=== PATIENT | male | born 1970 | race Caucasian/White ===

== ENCOUNTER → 2017-05-15 | Outpatient (CLI) | payer BC ==
[~2017-05-15] VITALS: Ht 210.8 cm; Wt 100.2 kg
[~2017-05-15] MED LIST: DIOVAN 80 MG TA80 M1 PO; LANTUS SOL100 UNIT/1 SUBQ; LIPITOR 20 MG T20 M1 PO; NOVOLOG FL100 UNIT/M SUBQ; VALACYCLOVIR500 MG PO; XANAX 0.25 MG0.25 MG PO
--- NOTE | ~2017-05-15 | HPC ---
[facility] [address] [place] [address] PAIN MANAGEMENT CONSULTATION Name: JARED CARBAJAL Room #: REG CLSharp Mesa VistaChucky.#: [id number] Admission: 05/15/17 Attend Phys: Og Woo DO Discharge: Date of : 66 Report #: [id number] THIS REPORT FOR: //name// CC: Scotty Torres MD DATE OF SERVICE: 05/15/2017 DATE OF SERVICE: 05/15/2017 CHIEF COMPLAINT: Neck pain, left upper extremity pain with paresthesias. HISTORY OF PRESENT ILLNESS: As you know, the patient is a very pleasant 46-year-old male, who began experiencing left neck pain, left upper extremity pain with paresthesias presented 02/01/2017. He states that his neck pain and left upper extremity pain was preceded by some chronic shoulder pain on that left side that had been present since November or December. The patient indicates his pain is intermittent, describes the pain as aching, sharp, stabbing, numbness and tingling. Places current pain score 5/10, daily average at 5/10, worst the pain has been is 7/10. The patient states sleeping on his left shoulder and using his left arm exacerbates symptoms. Stretching appears to improve pain. He denies injury or trauma to his neck or left upper extremity that may have led to symptom development. He has been referred to our service for evaluation for suspected cervical radiculopathy. PAST MEDICAL HISTORY: 1. Diabetes mellitus type 2. 2. Hypertension. 3. Lymphoma. 4. Dyslipidemia. 5. Anxiety disorder. PAST SURGICAL HISTORY: Bone marrow transplantation 1995, tonsillectomy in 1992, surgery for deviated septum in 1988, toe surgery in 2009. SOCIAL HISTORY: The patient denies tobacco, IV or illicit drug use. Admits to approximately 10 alcohol beverages per week. 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 He is working, not receiving workmen's compensation nor is he trying to obtain disability benefits. He is not in litigation in regards to pain. He is unaccompanied today. REVIEW OF SYSTEMS: Positive for wearing corrective eyewear, constipation, diabetes mellitus type 2, dyslipidemia, neck pain, left upper extremity pain and paresthesias. All other review of systems negative per 12-point review of systems other than those listed in history of present illness. [address] [address] PAIN MANAGEMENT CONSULTATION Name: JARED CARBAJAL CARMEN Room #: REG CLBela Lopez.#: [id number] Admission: 05/15/17 Attend Phys: Og Woo DO Discharge: Date of : 66 Report #: [id number] Pain impact score 2370 indicating mild to moderate interference of daily activities secondary to pain. ALLERGIES: MORPHINE. CURRENT MEDICATIONS: Alprazolam 0.25 mg p.r.n., Lantus 32 units before bedtime, valacyclovir 500 mg once a day, valsartan 800 mg per day, atorvastatin 20 mg per day, NovoLog FlexPen 16 units before meals. IMAGING DATA: No imaging available. PHYSICAL EXAMINATION: VITAL SIGNS: Blood pressure 129/91, pulse 79, respiratory rate 14, unlabored. The patient is 96% on room air, height 6 feet 1 inch tall, weight 221 pounds, BMI calculated 29.2. GENERAL: Well-developed, well-nourished, well-hydrated, 46-year-old male. He appears his stated age. He is placing current pain score approximately 5/10. HEENT: Normocephalic, atraumatic. Pupils equal, round, reactive to light. Extraocular muscles are intact. Sclerae nonicteric without injection. NEUROLOGIC: Cranial nerves 2-12 grossly intact. Speech is fluent. The patient deemed an excellent historian. LUNGS: Clear, no wheeze, rhonchi or rales. CARDIOVASCULAR: Regular. No appreciable gallop or rub. ABDOMEN: Soft, nontender, nondistended, normal active bowel sounds. EXTREMITIES: Show no clubbing, no cyanosis, no edema. MUSCULOSKELETAL: Upper extremity strength appears equal and symmetrical 5/5, muscle bulk and tone equal and symmetrical in comparing left upper extremity and right upper extremity. Deep tendinous reflexes at biceps, brachialis and triceps equal and symmetrical. He does have changes in sensation to light touch along the C5 dermatome on the left when compared to the right. Spurling's test positive left, negative right. ASSESSMENT: 1. Symptomatic cervical radiculopathy. 2. Cervical facet arthropathy with radiculopathy. 3. Chronic intractable pain. PLAN: 1. The patient has been referred to our service for suspected cervical radiculopathy. The physical exam, the distribution the patient describes, the sensation he is feeling as well as the provocating factors would indicate the patient is suffering from a C5 radiculopathy on the left side. We have discussed with the patient in generalities the treatment options that would potentially improve cervical radicular symptoms. These would include physical therapy, stretching exercises, core strengthening as well as traction [address] [address] PAIN MANAGEMENT CONSULTATION Name: JARED CARBAJAL Room #: REG CLBela Ferrara#: [id number] Admission: 05/15/17 Attend Phys: Og Woo DO Discharge: Date of : 66 Report #: [id number] techniques. We discussed medication management with addition of neuropathic pain medications and consistent nonsteroidal anti-inflammatory. We discussed cervical epidural injections under fluoroscopic guidance and surgical options. We did discuss with the patient that further evaluation with imaging would be suggested, as we do wish to determine the extent of pathology that may be in the cervical region. Imaging would begin with x-ray of the cervical region. If findings are not specific or undiscernible by the x-ray, I would recommend the patient move forward with an MRI of the cervical spine. This would provide us with more information about the soft tissues including the disks and nerve roots. The patient was amenable to begin with imaging studies. He does not wish to initiate medications for concerns of neuropathic pain medications causing dysphoric effects. 2. The patient will undergo x-ray imaging, AP and lateral of the cervical region. I have written for the x-rays to be obtained today. The patient will undergo this imaging study once it is available. I will review the findings, once the findings have been obtained. If pathology can be noted in the area, we would have the patient return to discuss findings. If further evaluation will be necessary, I will have the patient undergo MRI. 3. The patient has requested that we provide his Xanax 0.25 mg, he takes this medication approximately twice a day. He typically receives this from his primary care physician, but he has been unable to make an appointment. I have taken the liberty of providing this for the patient today, I have given #60, no refills. He is to follow up with his PCP for continuation of this therapy. 4. The patient completed his MRI on 05/15/2017, reviewed the findings, there are some changes at the C4-5 level that are concerning and I am going to have the patient undergo MRI. I have sent the patient for MRI cervical spine, no contrast. The patient will undergo this imaging as quickly as possible and return to review the findings once it is available. 5. We will make appointment back with the patient on 05/22/2017 at which time, we will review the patient's imaging studies and discuss further treatment options including the possibility of undergoing cervical epidural injection. I wish to thank Dr. Torres for the referral of this patient to our clinic. We will keep you apprised of his response to treatment, as we address suspected C5 left radiculopathy. Again, we wish to thank you for the opportunity to see the patient in consultation. <ELECTRONICALLY SIGNED> By: Og Woo DO 05/22/17 [id number] Og Woo DO /nt
[2017-05-15 08:03] VITALS: BP 129/91
== END ==
LOC: PAIN 07:08
DX: S13.150A Subluxation of C4/C5 cervical vertebrae, initial encounter (principal); S13.160A Subluxation of C5/C6 cervical vertebrae, initial encounter; M47.22 Other spondylosis with radiculopathy, cervical region; E11.9 Type 2 diabetes mellitus without complications; I10 Essential (primary) hypertension; E78.5 Hyperlipidemia, unspecified; G89.29 Other chronic pain; X58.XXXA Exposure to other specified factors, initial encounter; Y93.89 Activity, other specified; Y92.89 Other specified places as the place of occurrence of the external cause; Y99.8 Other external cause status

== ENCOUNTER → 2017-05-21 | Outpatient (CLI) | payer BC | LOC: MRI 07:06 | DX: M47.22 Other spondylosis with radiculopathy, cervical region (principal); M48.02 Spinal stenosis, cervical region ==

== ENCOUNTER → 2017-05-22 | Outpatient (CLI) | payer BC ==
[~2017-05-22] VITALS: Ht 185.4 cm; Wt 100.7 kg
--- NOTE | ~2017-05-22 | HPC ---
[facility] [place] [address] PAIN MANAGEMENT CONSULTATION Name: JARED CARBAJAL Room #: REG CL John.#: [id number] Admission: 05/22/17 Attend Phys: Og Woo DO Discharge: Date of : 66 Report #: [id number] THIS REPORT FOR: //name// CC: Scotty Woo DATE OF SERVICE: 05/22/2017 CHIEF COMPLAINT: Neck pain, left upper extremity pain with paresthesias. HISTORY OF PRESENT ILLNESS: As you know, the patient is a very pleasant 46-year-old male who suffers from cervical radiculopathy involving the neck and left upper extremity. The patient has undergone MRI of the cervical spine, which does show changes at the C4-C5 level with severe facet arthrosis affecting the left C5 nerve root, there are also changes at the C5-C6 level with severe neural foraminal stenosis affecting the right C6 nerve root, though the patient is not experiencing symptoms on the right side. The patient has returned today in followup visit to review his MRI and discuss the possibility of cervical injection. He is placing pain score about 5/10 today, he states pain is aching, stiff, numbness and tingling in sensation, exacerbated with sleeping on right side and movement, improves with stretching and relaxing. He returns to discuss options for treatment. ALLERGIES: MORPHINE. CURRENT MEDICATIONS: Insulin, atorvastatin, valacyclovir, valsartan, and alprazolam. IMAGING: MRI of cervical spine obtained on 05/21/2017, shows C2-C3 unremarkable. C3-C4 unremarkable. C4-C5, there is a left lateral recess small disk protrusion,, there is moderate right and severe left neural foraminal stenosis due to uncovertebral hypertrophy and facet arthrosis, and there is direct impingement upon the left C5 nerve root. At C5-C6, there is no significant central canal stenosis, mild thecal sac narrowing, severe right and [id number] left neural foraminal stenosis secondary to uncovertebral and facet arthrosis causing a right C6 nerve root impingement. C6-C7, no significant disk bulge or protrusion, no significant central canal stenosis, [id number] right, moderate left neural foraminal stenosis. C7-T1 unremarkable. PHYSICAL EXAMINATION: VITAL SIGNS: Blood pressure 141/92, pulse is 73, respiratory rate 16 and unlabored, the patient is 96% on room air, height 6 feet 1 inch tall, weight 222 pounds, and BMI calculated 29.3. GENERAL: Well-developed, well-nourished, well-hydrated 46-year-old male, appearing his stated age, placing current pain score at 5/10. [place] [address] PAIN MANAGEMENT CONSULTATION Name: JARED CARBAJAL Room #: REG CLBela Ferrara#: [id number] Admission: 05/22/17 Attend Phys: Og Woo DO Discharge: Date of : 66 Report #: [id number] HEENT: Normocephalic, atraumatic. Pupils are equal, round, reactive to light. Extraocular muscles are intact. Sclerae nonicteric without injection. NEUROLOGIC: Cranial nerves 2-12 are grossly intact. Speech is fluent. EXTREMITIES: Show no clubbing, no cyanosis, and no edema. MUSCULOSKELETAL: Upper extremity strength is equal and symmetrical 5/5. He has intact sensation to C5 to T1 dermatomes. Spurling's test positive left, negative right. ASSESSMENT: 1. Cervical radiculopathy. 2. Displacement of cervical intervertebral disk with radiculopathy. 3. Cervical spondylosis with radiculopathy. 4. Neural foraminal stenosis of the cervical spine. PLAN: 1. The patient has returned today in followup visit where we have taken approximately 15 minutes of time to review the MRI of the cervical region. We discussed the findings therein and how it correlates the patient's symptoms. After this discussion of the findings on the MRI, we discussed treatment options that are available for cervical radiculopathy involving the C5 nerve root on the left. We discussed medical management with neuropathic pain medication. We discussed cervical epidural injections and surgical options. After reviewing the risks and benefits of all proposed treatment options, the patient chose the cervical epidural injection. The patient was advised the risks and benefits of a cervical epidural injection. These risks include, but are not necessarily limited to bleeding, bruising, infection, worsening of pain, no relief of pain, also risk of temporary or permanent muscle weakness, temporary or permanent nerve damage, possible paralysis and . The patient states understood and wished to proceed. 2. No medication changes were made at today's visit. The patient will continue current medical therapy as previously prescribed. 3. The patient has requested of our services to provide a referral for acupuncture therapy and massage therapy, I have provided this referral to the patient today, he can follow up with his acupuncture therapist and massage therapists for further treatment. I do think this would be very helpful in alleviating the pain he is experiencing and could be quite beneficial in conjunction with injections and medication management. 4. We will see the patient back in followup visit on an as needed basis, we did make a standing appointment with the patient in about 2 weeks, he will advise us of his efficacy at that point. PROCEDURE NOTE DESCRIPTION OF PROCEDURE: C7-T1 cervical epidural steroid injection under fluoroscopic guidance. [place] [id number] PAIN MANAGEMENT CONSULTATION Name: JARED CARBAJAL Room #: REG [facility]#: [id number] Admission: 05/22/17 Attend Phys: Og Woo DO Discharge: Date of : 66 Report #: [id number] This is the first procedure of the first series that the patient is undergoing. After obtaining written consent, the patient was taken back to the fluoroscopy suite and placed in a prone position with separate pillows under chest and forehead to decrease cervical lordosis. The skin overlying the cervical area was prepped and draped in an aseptic fashion. The C7-T1 vertebral interspace was identified by AP fluoroscopy. The skin and subcutaneous tissue overlying the target site of injection was anesthetized using 3 mL of 1% lidocaine. A 20-gauge 3-1/2-inch Tuohy needle was advanced under fluoroscopic guidance toward the epidural space using a midline approach. The epidural space was identified using a loss of resistance to air technique. After negative aspiration for heme or cerebrospinal fluid, a total of 1 mL of Omnipaque was injected. A cervical epidurogram was confirmed using AP and oblique fluoroscopy. After negative aspiration for heme or cerebrospinal fluid, 5 mL of a solution containing 2 mL 40 mg per mL, 80 mg total triamcinolone, 3 mL lidocaine 1% was injected in increments. Contrast spread was noted from posterior epidural space. The needle was then retracted approximately chcf and the needle track was flushed with 1 mL of 1% lidocaine. There were no apparent new sensory deficits in the upper extremities present following the procedure. A sterile bandage was placed over the injection site. The heart rate, pulse oximetry and blood pressure were continuously monitored after the procedure. There were no apparent complications. The patient tolerated the procedure well and was carefully escorted in the recovery room in stable condition. After meeting discharge criteria, the patient was discharged home. By: [id number] Og Woo DO /nt
[2017-05-22 08:40] VITALS: BP 141/92
== END | disposition home or self-care (01) ==
LOC: PAIN 07:56
DX: M50.10 Cervical disc disorder with radiculopathy, unspecified cervical region (principal); M47.22 Other spondylosis with radiculopathy, cervical region; M48.02 Spinal stenosis, cervical region; Z79.4 Long term (current) use of insulin; Z79.899 Other long term (current) drug therapy; Z88.6 Allergy status to analgesic agent